=== PATIENT | female | born 1975 | race Caucasian/White ===

== ENCOUNTER 2017-01-31 02:07 | Inpatient (IN) | payer MEDICARE, OTHER ==
[~2017-01-31] VITALS: Ht 152.4 cm; Wt 93.5 kg
[~2017-01-31 02:07] MED LIST: BENADRYL ALLERG25 MG PO; CEFTIN500 MG PO; CLINDAMYCIN HC300 MG PO; KEPPRA500 MG PO; LEVOTHYROXINE25 MCG PO; SYNTHROID PO; TYLENOL 325MG325 MG PO; VALIUM 5 MG TAB5 MG PR; VITAMIN D50000 UNIT PO; ZOCOR20 MG PO; ZOCOR40 MG PO; ZOFRAN4 MG PO
[2017-01-31 03:33] LABS: HEMOGLOBIN 13.4 gm/dl (12.3-15.3); RED BLOOD COUNT 4.59 M/UL (4.00-5.10)
[2017-01-31 03:44] LABS: BUN/CREATININE RATIO 15 (0-10)
[2017-01-31 09:55] LABS: BUN/CREATININE RATIO 16 (0-10)
[2017-01-31 13:39] LABS: BUN/CREATININE RATIO 15 (0-10)
[2017-01-31] MEDS ORDERED: MELOXICAM15 MG PO (15:16)
[2017-01-31] MEDS ORDERED: ZYLOPRIM 300 M300 MG PO (15:16)
[2017-01-31] MEDS ORDERED: SYNTHROID75 MCG PO (15:16)
[2017-01-31] MEDS ORDERED: LEVAQUIN750 MG PO (15:17)
[2017-01-31 19:35] LABS: BUN/CREATININE RATIO 13 (0-10)
[2017-02-01 08:09] LABS: HEMOGLOBIN 13.2 gm/dl (12.3-15.3); RED BLOOD COUNT 4.57 M/UL (4.00-5.10)
[2017-02-01 08:10] LABS: WHITE BLOOD COUNT 10.6 K/UL (4.5-11.0)
[2017-02-01 08:24] LABS: BUN/CREATININE RATIO 10 (0-10)
[2017-02-02 03:37] LABS: HEMOGLOBIN 12.1 gm/dl (12.3-15.3); RED BLOOD COUNT 4.26 M/UL (4.00-5.10); WHITE BLOOD COUNT 9.1 K/UL (4.5-11.0)
[2017-02-02 03:51] LABS: BUN/CREATININE RATIO 7 (0-10)
[2017-02-02 20:53] LABS: BUN/CREATININE RATIO 5 (0-10)
[2017-02-03 05:38] LABS: BUN/CREATININE RATIO 6 (0-10)
[2017-02-04 08:00] LABS: BUN/CREATININE RATIO 7 (0-10)
[2017-02-05 06:03] LABS: BUN/CREATININE RATIO 12 (0-10)
[2017-02-06 04:27] LABS: BUN/CREATININE RATIO 10 (0-10)
[2017-02-07 05:34] LABS: BUN/CREATININE RATIO 11 (0-10)
[2017-02-07] MEDS ORDERED: SODIUM CHLORIDE1 G1 PO (14:49)
== END 2017-02-07 15:28 | disposition home or self-care (01) | DRG 418 ==
LOC: ER1 02:07 → PROG CARE 05:10 → MED SURG 4 05:10 → ZEROF 05:10 → PROG CARE 14:40 → MED SURG 4 02-03 16:44
PROVIDERS: Hospitalist; Internal Medicine; Internal Medicine Nephrology; Physician Assistant; Surgery; ADMIT Internal Medicine
PROC: BF121ZZ Fluoroscopy of Gallbladder using Low Osmolar Contrast (ICD-10-PCS; principal; 2017-01-31 09:15)
PROC: 0FT44ZZ Resection of Gallbladder, Percutaneous Endoscopic Approach (ICD-10-PCS; principal; 2017-01-31 09:15)
DX: K81.0 Acute cholecystitis (principal); E87.1 Hypo-osmolality and hyponatremia; R47.01 Aphasia; E87.5 Hyperkalemia; E03.9 Hypothyroidism, unspecified; Q90.9 Down syndrome, unspecified; G40.909 Epilepsy, unspecified, not intractable, without status epilepticus; E78.5 Hyperlipidemia, unspecified; Z79.2 Long term (current) use of antibiotics
CPT/HCPCS: 36415; 47531; 51701; 71010; 80048; 80053; 80061; 81001; 82436; 82533; 82962; 83605; 83690; 83735; 83930; 83935; 84132; 84295; 84300; 84436; 84443; 84703; 85025; 85027; 87040; 87086; 96361; 96365; 96367; 96375; 97110; 97116; 97530; 99285; C9113; J0456; J0690; J0696; J1200; J1335; J2270; J2405; J2710; J3010; J7030; J7040; J7050; J7120; Q0162; Q9962

== ENCOUNTER → 2017-02-14 | Outpatient (CLI) | payer MEDICARE, OTHER ==
[~2017-02-14] MED LIST changes: +LEVAQUIN750 MG PO; +MELOXICAM15 MG PO; +SODIUM CHLORIDE1 G1 PO; +SYNTHROID75 MCG PO; +ZYLOPRIM 300 M300 MG PO
[2017-02-14 09:56] LABS: BUN/CREATININE RATIO 13 (0-10)
== END ==
LOC: LAB 09:11
PROVIDERS: Internal Medicine Nephrology
DX: E87.1 Hypo-osmolality and hyponatremia (principal); E87.6 Hypokalemia
CPT/HCPCS: 36415; 80048

== ENCOUNTER → 2020-09-13 | Outpatient (CLI) | payer MEDICARE, OTHER ==
[2020-09-13 10:20] LABS: HEMOGLOBIN 13.4 gm/dl (12.3-15.3); RED BLOOD COUNT 4.26 M/UL (4.00-5.10); WHITE BLOOD COUNT 4.8 K/UL (4.5-11.0)
[2020-09-13 10:41] LABS: BUN/CREATININE RATIO 21 (0-10)
== END ==
LOC: LAB 09:38
PROVIDERS: Family Medicine
DX: D51.3 Other dietary vitamin B12 deficiency anemia (principal); E78.49 Other hyperlipidemia; E03.9 Hypothyroidism, unspecified; E55.9 Vitamin D deficiency, unspecified
CPT/HCPCS: 36415; 80053; 80061; 82607; 82746; 84439; 84443; 85027

== ENCOUNTER → 2021-04-04 | Outpatient (CLI) | payer MEDICARE, OTHER ==
[2021-04-04 12:42] LABS: HEMOGLOBIN 14.1 gm/dl (12.3-15.3); RED BLOOD COUNT 4.42 M/UL (4.00-5.10); WHITE BLOOD COUNT 4.7 K/UL (4.5-11.0)
[2021-04-04 13:07] LABS: BUN/CREATININE RATIO 14 (0-10)
== END ==
LOC: LAB 11:33
PROVIDERS: Family Medicine
DX: Z51.81 Encounter for therapeutic drug level monitoring (principal); D51.0 Vitamin B12 deficiency anemia due to intrinsic factor deficiency; M10.9 Gout, unspecified; E55.9 Vitamin D deficiency, unspecified; G40.009 Localization-related (focal) (partial) idiopathic epilepsy and epileptic syndromes with seizures of localized onset, not intractable, without status epilepticus; G90.9 Disorder of the autonomic nervous system, unspecified; E78.5 Hyperlipidemia, unspecified
CPT/HCPCS: 36415; 80053; 80061; 82607; 84439; 84443; 84550; 85027

== ENCOUNTER → 2021-08-24 | Outpatient (CLI) | payer MEDICARE, OTHER ==
[2021-08-24 10:17] LABS: HEMOGLOBIN 13.7 gm/dl (12.3-15.3); RED BLOOD COUNT 4.37 M/UL (4.00-5.10)
[2021-08-25 07:12] LABS: ALKALINE PHOSPHATASE, S 141 IU/L (44-121); ALT (SGPT) 11 IU/L (0-32); AST (SGOT) 20 IU/L (0-40); BILIRUBIN, TOTAL 0.2 mg/dL (0.0-1.2); BUN 15 mg/dL (6-24); BUN/CREATININE RATIO 16 (9-23); CALCIUM, SERUM 8.8 mg/dL (8.7-10.2); CARBON DIOXIDE, TOTAL 23 mmol/L (20-29); CHLORIDE, SERUM 103 mmol/L (96-106); CHOLESTEROL, TOTAL 152 mg/dL (100-199); CREATININE, SERUM 0.95 mg/dL (0.57-1.00); EGFR IF AFRICN AM 84 (>59); EGFR IF NONAFRICN AM 73 (>59); GLOBULIN, TOTAL 3.4 g/dL (1.5-4.5); GLUCOSE, SERUM 76 mg/dL (65-99); HDL CHOLESTEROL 68 mg/dL (>39); LDL CHOLESTEROL CALC 64 mg/dL (0-99); LDL/HDL RATIO 0.9 ratio (0.0-3.2); POTASSIUM, SERUM 4.6 mmol/L (3.5-5.2); PROTEIN, TOTAL, SERUM 6.9 g/dL (6.0-8.5); SODIUM, SERUM 139 mmol/L (134-144); T. CHOL/HDL RATIO 2.2 ratio (0.0-4.4); TRIGLYCERIDES 112 mg/dL (0-149)
[2021-08-25 08:13] LABS: VITAMIN D, 25-HYDROXY 67.5 ng/mL (30.0-100.0)
== END ==
LOC: LAB 09:18
PROVIDERS: Family Medicine
DX: Z51.81 Encounter for therapeutic drug level monitoring (principal); D51.0 Vitamin B12 deficiency anemia due to intrinsic factor deficiency; M10.9 Gout, unspecified; E55.9 Vitamin D deficiency, unspecified; G40.909 Epilepsy, unspecified, not intractable, without status epilepticus; G90.9 Disorder of the autonomic nervous system, unspecified; E78.5 Hyperlipidemia, unspecified
CPT/HCPCS: 36415; 80053; 80061; 82607; 84439; 84443; 84550; 85027

== ENCOUNTER → 2022-02-22 | Outpatient (CLI) | payer MEDICARE, OTHER ==
[2022-02-22 09:52] LABS: HEMOGLOBIN 15.3 gm/dl (12.3-15.3); RED BLOOD COUNT 4.95 M/UL (4.00-5.10); WHITE BLOOD COUNT 4.6 K/UL (4.5-11.0)
[2022-02-22 10:33] LABS: BUN/CREATININE RATIO 18 (0-10)
== END ==
LOC: LAB 09:16
PROVIDERS: Family Medicine
DX: D51.0 Vitamin B12 deficiency anemia due to intrinsic factor deficiency (principal); Z51.81 Encounter for therapeutic drug level monitoring; E55.9 Vitamin D deficiency, unspecified; G40.009 Localization-related (focal) (partial) idiopathic epilepsy and epileptic syndromes with seizures of localized onset, not intractable, without status epilepticus; G90.9 Disorder of the autonomic nervous system, unspecified; E78.5 Hyperlipidemia, unspecified; Z79.899 Other long term (current) drug therapy
CPT/HCPCS: 36415; 80053; 80061; 82607; 84439; 84443; 85027